=== PATIENT | female | born 1935 | race Hispanic/Latino ===

== ENCOUNTER → 2018-02-09 | Outpatient (CLI) | payer MEDICARE ==
[~2018-02-09] MED LIST: AMLO2.5T3 PO; ASPI-1181 PO; CHOL200026 PO; FENO160T16 PO; GLIM2TAB3 PO; HYDR-3965 PO; IRON150C13 PO; LISI-613 PO; METO25TA6 PO; SITA50TA PO; TOFA11TA PO; VITAMIN B 12 PO
== END | disposition home or self-care (01) ==
LOC: SHCH 10:27
PROVIDERS: ATTEND Internal Medicine Cardiovascular Disease
DX: R60.0 Localized edema (principal); E11.9 Type 2 diabetes mellitus without complications
CPT/HCPCS: 93970

== ENCOUNTER → 2018-06-04 | Outpatient (CLI) | payer MEDICARE ==
[~2018-06-04] MED LIST changes: -AMLO2.5T3 PO; +AMLO2.5T4 PO; +APIX2.5T PO; -ASPI-1181 PO; +ASPI-1197 PO; -CHOL200026 PO; +CYAN250010 PO; -FENO160T16 PO; +FENO67CA PO; +FURO20TA4 PO; +GLIM1TAB2 PO; -GLIM2TAB3 PO; -HYDR-3965 PO; -IRON150C13 PO; +IRON150C18 PO; -METO25TA6 PO; +PANT40TA25 PO; +VIT1TABL95 PO; -VITAMIN B 12 PO
== END | disposition home or self-care (01) ==
LOC: SHCH 10:51
PROVIDERS: ATTEND Internal Medicine Cardiovascular Disease
DX: I08.3 Combined rheumatic disorders of mitral, aortic and tricuspid valves (principal); I48.2 Chronic atrial fibrillation; I49.5 Sick sinus syndrome
CPT/HCPCS: 93306

== ENCOUNTER → 2019-05-17 | Outpatient (CLI) | payer MEDICARE ==
[~2019-05-17] MED LIST changes: +GLIM1TAB18 PO; -GLIM1TAB2 PO
== END | disposition home or self-care (01) ==
LOC: SHCH 14:40
PROVIDERS: ATTEND Internal Medicine Cardiovascular Disease
DX: I34.0 Nonrheumatic mitral (valve) insufficiency (principal); I48.20 Chronic atrial fibrillation, unspecified; R06.00 Dyspnea, unspecified
CPT/HCPCS: 93306

== ENCOUNTER 2020-01-04 07:14 | Day surgery (SDC) | payer MEDICARE ==
[~2020-01-04] VITALS: Ht 152.4 cm; Wt 85.3 kg
[~2020-01-04 07:14] MED LIST changes: -PANT40TA25 PO; +PANT40TA54 PO; +SODIUM CHLORIDE 0.9% 1000ML 1,000 ML IV ONE
[2020-01-04 08:00] VITALS: BP 181/80
[2020-01-04] MEDS ORDERED: LYRIC (09:03)
[2020-01-04] MEDS ORDERED: INSLAN SQ (09:04)
[2020-01-04] MEDS ORDERED: PROPOFOL 10 MG/ML 20ML VIAL IV ONE ×2 (10:41)
[2020-01-04 10:55] VITALS: BP 161/84
[2020-01-04 11:00] VITALS: BP 164/88
[2020-01-04 11:05] VITALS: BP 160/80
[2020-01-04 11:10] VITALS: BP 164/84
== END 2020-01-04 12:05 | disposition home or self-care (01) ==
LOC: ENDO 07:14 → DAH 07:14 → ENDO 12:05
PROVIDERS: ATTEND Internal Medicine
DX: R93.3 Abnormal findings on diagnostic imaging of other parts of digestive tract (principal); K31.89 Other diseases of stomach and duodenum; K80.50 Calculus of bile duct without cholangitis or cholecystitis without obstruction; K80.20 Calculus of gallbladder without cholecystitis without obstruction; K76.9 Liver disease, unspecified; D64.9 Anemia, unspecified; K59.00 Constipation, unspecified; E78.5 Hyperlipidemia, unspecified; I12.9 Hypertensive chronic kidney disease with stage 1 through stage 4 chronic kidney disease, or unspecified chronic kidney disease; E11.22 Type 2 diabetes mellitus with diabetic chronic kidney disease; N18.3 Chronic kidney disease, stage 3 (moderate); Z88.5 Allergy status to narcotic agent; Z88.8 Allergy status to other drugs, medicaments and biological substances; I48.91 Unspecified atrial fibrillation; Z95.0 Presence of cardiac pacemaker; Z90.710 Acquired absence of both cervix and uterus; Z20.828 Contact with and (suspected) exposure to other viral communicable diseases
CPT/HCPCS: 43237; 82948 ×2; 93005; A4215; A4221; A4222; A4223; A4606; A4620; A4663; C9803; J2704 ×2; J7030; U0003

== ENCOUNTER 2020-01-05 05:57 | Day surgery (SDC) | payer MEDICARE ==
[2020-01-05] VITALS (13 sets, daily range): BP systolic 142–177; BP diastolic 61–86
[~2020-01-05] VITALS: Ht 152.4 cm; Wt 85.3 kg
[~2020-01-05 05:57] MED LIST changes: -ASPI-1197 PO; -FENO67CA PO; -GLIM1TAB18 PO; +INSLAN SQ; -LISI-613 PO; -SODIUM CHLORIDE 0.9% 1000ML 1,000 ML IV ONE
[2020-01-05] MEDS ORDERED: SODIUM CHLORIDE 0.9% 1000ML 1,000 ML IV ONE (06:37)
[2020-01-05] MEDS ORDERED: ONDANSETRON HCL 4 MG/2 ML VIAL ONE (06:42)
[2020-01-05] MEDS ORDERED: MIDAZOLAM HCL 1 MG/ML 2ML VIAL ONE (06:42)
[2020-01-05] MEDS ORDERED: GLYCOPYRROLATE 1 MG/5 ML SYRINGE ONE (06:42)
[2020-01-05] MEDS ORDERED: LIDOCAINE PF 2% 5ML ABBOJECT ONE (06:42)
[2020-01-05] MEDS ORDERED: DEXAMETHASONE SOD PHOSPHATE 10MG/ML 1ML VIAL ONE ×2 (06:42→06:44)
[2020-01-05] MEDS ORDERED: SUCCINYLCHOLINE CHLORIDE 20 MG/ML 10 ML VIAL ONE (06:42)
[2020-01-05] MEDS ORDERED: FENTANYL CITRATE PF 50 MCG/1 ML 2ML VIAL ONE (06:43)
[2020-01-05] MEDS ORDERED: ROCURONIUM 10MG/1ML SYR 10 MG/ML ML ONE (06:43)
[2020-01-05] MEDS ORDERED: NEOSTIGMINE 5MG/5ML SYR IV ONE (06:43)
[2020-01-05] MEDS ORDERED: PROPOFOL 10 MG/ML 20ML VIAL IV ONE ×2 (06:43→06:45)
[2020-01-05] MEDS ORDERED: IOHEXOL-350 50ML VIAL IV ONE (07:18)
[2020-01-05] MEDS: INDOMETHACIN 50 MG SUPP.RECT RC SCH ×2 (08:20→08:30)
== END 2020-01-05 10:15 | disposition home or self-care (01) ==
LOC: DAH 05:57 → ENDO 05:57
PROVIDERS: ATTEND Internal Medicine
DX: K80.50 Calculus of bile duct without cholangitis or cholecystitis without obstruction (principal); K83.8 Other specified diseases of biliary tract; K59.00 Constipation, unspecified; K80.20 Calculus of gallbladder without cholecystitis without obstruction; K76.9 Liver disease, unspecified; I48.91 Unspecified atrial fibrillation; I12.9 Hypertensive chronic kidney disease with stage 1 through stage 4 chronic kidney disease, or unspecified chronic kidney disease; N18.2 Chronic kidney disease, stage 2 (mild); E11.22 Type 2 diabetes mellitus with diabetic chronic kidney disease; M06.9 Rheumatoid arthritis, unspecified; E66.9 Obesity, unspecified; Z95.0 Presence of cardiac pacemaker; Z90.710 Acquired absence of both cervix and uterus; Z79.4 Long term (current) use of insulin; Z79.899 Other long term (current) drug therapy
CPT/HCPCS: 43262; 43264; 74328; 82948; C1769; C1773; J0330; J1100 ×2; J2001; J2250; J2405; J2704 ×2; J2710; J3010; J3490; J7030; Q9967; 74330

== ENCOUNTER → 2020-02-25 | Outpatient (CLI) | payer MEDICARE ==
[~2020-02-25] MED LIST changes: -APIX2.5T PO
== END | disposition home or self-care (01) ==
LOC: SHCH 08:25
PROVIDERS: ATTEND Internal Medicine Cardiovascular Disease
DX: I48.0 Paroxysmal atrial fibrillation (principal); I50.32 Chronic diastolic (congestive) heart failure
CPT/HCPCS: 93306; 93356

== ENCOUNTER 2020-06-28 15:15 | Emergency (ER) | payer MEDICARE ==
[2020-06-28 16:18] LABS: BASOPHILS % (AUTO) 0.4 % (0.0-5.0); EOSINOPHILS % (AUTO) 2.4 % (0.0-8.0); HEMATOCRIT 32.9 % (36-48); LYMPHOCYTES % (AUTO) 6.7 % (21.0-51.0); MEAN CORPUSCULAR HEMOGLOBIN 24.4 pg (27.0-33.0); MEAN CORPUSCULAR HGB CONC 30.4 g/dL (32.0-36.0); MEAN CORPUSCULAR VOLUME 80.2 fL (79-99); MONOCYTES % (AUTO) 8.9 % (3.0-13.0); NEUTROPHILS % (AUTO) 81.2 % (40.0-77.0); PLATELET COUNT (AUTO) 203 K/uL (130-400); RED CELL DISTRIBUTION WIDTH 18.9 % (11.0-15.5); WHITE BLOOD COUNT (AUTO) 7.8 K/uL (4.8-10.8)
[2020-06-28 16:28] LABS: CREATININE 2.9 mg/dL (0.5-1.5); POTASSIUM 4.1 mmol/L (3.5-5.1)
[2020-06-28 16:31] LABS: INR 1.23 (0.85-1.15); PROTHROMBIN TIME 13.2 SEC (9.6-11.6)
[2020-06-28 16:32] LABS: PARTIAL THROMBOPLASTIN TIME 27.8 SEC (26.3-35.5)
[2020-06-28 16:35] LABS: ALBUMIN 2.6 g/dL (3.5-5.0); BILIRUBIN,TOTAL 0.4 mg/dL (0.2-1.0); TOTAL PROTEIN, SERUM 6.8 g/dL (6.0-8.3)
[2020-06-28 17:07] LABS: APPEARANCE,URINE Cloudy (CLEAR); BILIRUBIN,URINE Negative (NEGATIVE); COLOR,URINE Dark Yellow (YELLOW); GLUCOSE, URINE (UA) Negative (NEGATIVE); KETONES,URINE Negative (NEGATIVE); LEUKOCYTE ESTERASE ,URINE Large (NEGATIVE); NITRATE,URINE Negative (NEGATIVE); OCCULT BLOOD,URINE Trace (NEGATIVE); PROTEIN,URINE Negative (NEGATIVE); UROBILINOGEN,URINE 0.2 mg/dL (0.2-1.0)
[2020-06-28 17:14] LABS: BACTERIA,URINE Few /HPF (None Seen); SQUAMOUS EPITHELIAL CELL,UR Moderate /HPF (0-2)
[2020-06-28 17:15] LABS: MUCUS,URINE Rare LPF (None Seen); TRANSITIONAL EPI CELLS,URINE Rare /HPF (None Seen)
[2020-06-29 01:04] LABS: APPEARANCE,URINE Clear (CLEAR); BILIRUBIN,URINE Negative (NEGATIVE); COLOR,URINE Yellow (YELLOW); GLUCOSE, URINE (UA) Negative (NEGATIVE); KETONES,URINE Negative (NEGATIVE); LEUKOCYTE ESTERASE ,URINE Moderate (NEGATIVE); NITRATE,URINE Negative (NEGATIVE); OCCULT BLOOD,URINE Negative (NEGATIVE); PH,URINE 6.5 (5.0-8.0); PROTEIN,URINE Negative (NEGATIVE); UROBILINOGEN,URINE 0.2 mg/dL (0.2-1.0)
[2020-06-29] MEDS ORDERED: 0.9%NACL 1000ML 1,000 ML IV ONE (01:09)
[2020-06-29] MEDS ORDERED: CEFTRIAXONE 1G VIAL ONE (01:18)
[2020-06-29 01:23] LABS: BACTERIA,URINE Few /HPF (None Seen); RBC,URINE 0-1 /HPF (0-1)
== END 2020-06-29 07:29 | disposition home or self-care (01) ==
LOC: EDH 15:15
DX: N39.0 Urinary tract infection, site not specified (principal); M62.81 Muscle weakness (generalized)
CPT/HCPCS: 36415 ×2; 71045; 80053; 81001; 83880; 84484 ×2; 85025; 85610; 85730; 87088; 93005; 96365; 96366; 99285; J0696; J7030

== ENCOUNTER 2020-08-23 20:24 | Inpatient (IN) | payer MEDICARE ==
[~2020-08-23] VITALS: Ht 152.4 cm; Wt 69.8 kg
[2020-08-23 20:53] LABS: BASOPHILS % (AUTO) 0.3 % (0.0-5.0); LYMPHOCYTES % (AUTO) 4.2 % (21.0-51.0); MEAN CORPUSCULAR HEMOGLOBIN 26.2 pg (27.0-33.0); MEAN CORPUSCULAR HGB CONC 32.1 g/dL (32.0-36.0); MEAN CORPUSCULAR VOLUME 81.7 fL (79-99); NEUTROPHILS % (AUTO) 85.1 % (40.0-77.0); PLATELET COUNT (AUTO) 241 K/uL (130-400); RED BLOOD CELL COUNT(AUTO) 4.65 MIL/uL (4.00-5.50); RED CELL DISTRIBUTION WIDTH 16.8 % (11.0-15.5)
[2020-08-23 21:18] LABS: INR 1.29 (0.85-1.15); PROTHROMBIN TIME 13.7 SEC (9.6-11.6)
[2020-08-23 21:20] LABS: PARTIAL THROMBOPLASTIN TIME 28.1 SEC (26.3-35.5)
[2020-08-23 21:21] LABS: B-TYPE NATRIURETIC PEPTIDE 163 pg/mL (0-100)
[2020-08-23 21:23] LABS: CREATININE 1.9 mg/dL (0.5-1.5); POTASSIUM 3.2 mmol/L (3.5-5.1)
[2020-08-23 21:28] LABS: ALBUMIN 2.9 g/dL (3.5-5.0); BILIRUBIN,TOTAL 0.6 mg/dL (0.2-1.0); TOTAL PROTEIN, SERUM 6.9 g/dL (6.0-8.3)
[2020-08-23] MEDS ORDERED: KCL 20 MEQ ERTAB PO ONE (22:14)
[2020-08-23] MEDS ORDERED: ONDANSETRON 4MG INJ ONE (22:14)
[2020-08-23 22:22] LABS: APPEARANCE,URINE Clear (CLEAR); BILIRUBIN,URINE Negative (NEGATIVE); GLUCOSE, URINE (UA) Negative (NEGATIVE); KETONES,URINE Trace mg/dL (NEGATIVE); LEUKOCYTE ESTERASE ,URINE Negative (NEGATIVE); NITRATE,URINE Negative (NEGATIVE); OCCULT BLOOD,URINE Negative (NEGATIVE); PROTEIN,URINE Negative (NEGATIVE)
[2020-08-23 22:24] LABS: COLOR,URINE YELLOW (YELLOW)
[2020-08-23] MEDS ORDERED: ZOSYN 3.375GM+NS 50ML 50 ML IV ONE (22:48)
[2020-08-24] MEDS: CEFTRIAXONE 1G VIAL IVP SCH (01:00)
[2020-08-24] MEDS ORDERED: CEFTRIAXONE 1G VIAL ONE (01:07)
[2020-08-24] MEDS ORDERED: MORPHINE 2 MG SYG ONE (01:07)
[2020-08-24] MEDS ORDERED: DEXTROSE 5 % AND 0.9 % NACL 1,000 ML IV ONE (01:08)
[2020-08-24] MEDS ORDERED: ACETAMINOPHEN 650 MG SUPPOSITORY RC PRN (01:15)
[2020-08-24] MEDS ORDERED: DEXTROSE 50%-WATER 50 ML DISP.SYRIN IV PRN (01:15)
[2020-08-24] MEDS ORDERED: ONDANSETRON 4MG INJ IVP PRN (01:15)
[2020-08-24] MEDS ORDERED: GLUCAGON 1MG KIT 1 MG ML IM PRN (01:15)
[2020-08-24] MEDS ORDERED: MORPHINE 2 MG SYG IVP PRN (01:15)
[2020-08-24] MEDS: DEXTROSE 5 % AND 0.9 % NACL 1,000 ML IV SCH (01:15)
[2020-08-24] MEDS ORDERED: ONDANSETRON 4MG INJ ONE (01:27)
[2020-08-24 02:30] VITALS: BP 155/59
[2020-08-24 04:41] LABS: HEMATOCRIT 32.9 % (36-48); MEAN CORPUSCULAR HGB CONC 31.6 g/dL (32.0-36.0); MEAN CORPUSCULAR VOLUME 82.3 fL (79-99); PLATELET COUNT (AUTO) 203 K/uL (130-400); RED CELL DISTRIBUTION WIDTH 16.5 % (11.0-15.5)
[2020-08-24 05:04] LABS: CREATININE 1.7 mg/dL (0.5-1.5); MAGNESIUM 1.3 mg/dL (1.80-2.40); POTASSIUM 3.5 mmol/L (3.5-5.1)
[2020-08-24] MEDS: INSULIN R NPO SSI SQ SCH ×3 (05:06→18:00)
[2020-08-24 05:26] LABS: BASOPHILS % (MANUAL) 1 % (0-2); EOSINOPHILS % (MANUAL) 2 % (1-6); LYMPHOCYTES % (MANUAL) 3 % (22-44); MAN.DIFF COMMENT-IMPRESSION MANUAL DIFFERENTIAL; MONOCYTES % (MANUAL) 8 % (2-9); SEGMENTED NEUTROPHILS % 86 % (40-70)
[2020-08-24 05:27] LABS: PLATELET MORPHOLOGY COMMENT ADEQUATE
[2020-08-24 07:30] VITALS: BP 119/52
[2020-08-24] MEDS ORDERED: REPA2TAB8 PO (10:53)
[2020-08-24] MEDS ORDERED: HYDR100T27 PO (10:53)
[2020-08-24] MEDS ORDERED: FENO54TA6 PO (10:53)
[2020-08-24] MEDS ORDERED: HERB1TAB PO (10:53)
[2020-08-24] MEDS ORDERED: ACET1TAB25 PO (10:53)
[2020-08-24] MEDS ORDERED: APIX2.5T PO (10:53)
[2020-08-24] MEDS ORDERED: DOXA4TAB3 PO (10:53)
[2020-08-24] MEDS ORDERED: PREG25CA18 PO (10:53)
[2020-08-24] MEDS ORDERED: LEFL10TA19 PO (10:53)
[2020-08-24] MEDS ORDERED: VIT D3 PO (10:53)
[2020-08-24] MEDS ORDERED: [UNRECOGNIZED DRUG - OTHER] PO (11:16)
[2020-08-24] MEDS ORDERED: VITA-328 PO (11:25)
[2020-08-24 11:29] VITALS: BP 146/58
[2020-08-24] MEDS: REPAGLINIDE 2 MG PO SCH ×2 (14:00→21:00)
[2020-08-24 17:01] VITALS: BP 132/52
[2020-08-24 20:00] VITALS: BP 141/57
[2020-08-24] MEDS: FENOFIBRATE 54 MG PO SCH (21:00)
[2020-08-24] MEDS: HYDRALAZINE 25MG TABLET PO SCH (21:39)
[2020-08-24] MEDS: APIXABAN 2.5 MG TABLET PO SCH (21:40)
[2020-08-24 23:19] VITALS: BP 142/54
[2020-08-25] MEDS: CEFTRIAXONE 1G VIAL IVP SCH (02:01)
[2020-08-25] MEDS: DEXTROSE 5 % AND 0.9 % NACL 1,000 ML IV SCH ×2 (02:01→17:15)
[2020-08-25 03:50] VITALS: BP 143/52
[2020-08-25 08:39] VITALS: BP 160/64
[2020-08-25] MEDS: REPAGLINIDE 2 MG PO SCH ×3 (09:00→20:43)
[2020-08-25] MEDS: **HM**(Leflunomide 10 MG PO SCH (09:00)
[2020-08-25] MEDS: APIXABAN 2.5 MG TABLET PO SCH ×2 (09:11→19:48)
[2020-08-25] MEDS: FUROSEMIDE 20 MG TABLET PO SCH (09:11)
[2020-08-25] MEDS: PREGABALIN 25 MG CAP PO SCH (09:11)
[2020-08-25] MEDS: HYDRALAZINE 25MG TABLET PO SCH ×2 (09:12→19:47)
[2020-08-25] MEDS: LINAGLIPTIN 5 MG TABLET PO SCH (09:12)
[2020-08-25] MEDS: DOXAZOSIN MESYLATE 2 MG TABLET PO SCH (09:12)
[2020-08-25] MEDS: PANTOPRAZOLE 40 MG TAB DR PO SCH (09:12)
[2020-08-25] MEDS: AMLODIPINE 2.5 MG TAB PO SCH (09:12)
[2020-08-25] MEDS: INSULIN R NPO SSI SQ SCH ×3 (12:00→18:00)
[2020-08-25 12:10] VITALS: BP 139/55
[2020-08-25 15:08] LABS: BASOPHILS % (AUTO) 0.6 % (0.0-5.0); EOSINOPHILS % (AUTO) 0.9 % (0.0-8.0); HEMATOCRIT 33.6 % (36-48); LYMPHOCYTES % (AUTO) 4.5 % (21.0-51.0); MEAN CORPUSCULAR HEMOGLOBIN 27.1 pg (27.0-33.0); MEAN CORPUSCULAR HGB CONC 32.4 g/dL (32.0-36.0); MEAN CORPUSCULAR VOLUME 83.6 fL (79-99); MONOCYTES % (AUTO) 8.8 % (3.0-13.0); NEUTROPHILS % (AUTO) 84.9 % (40.0-77.0); PLATELET COUNT (AUTO) 191 K/uL (130-400); RED BLOOD CELL COUNT(AUTO) 4.02 MIL/uL (4.00-5.50); RED CELL DISTRIBUTION WIDTH 16.8 % (11.0-15.5); WHITE BLOOD COUNT (AUTO) 6.9 K/uL (4.8-10.8)
[2020-08-25 15:22] LABS: INR 1.27 (0.85-1.15); PROTHROMBIN TIME 13.5 SEC (9.6-11.6)
[2020-08-25 15:31] LABS: ALBUMIN 2.7 g/dL (3.5-5.0); BILIRUBIN,TOTAL 0.5 mg/dL (0.2-1.0); CREATININE 1.4 mg/dL (0.5-1.5); TOTAL PROTEIN, SERUM 6.1 g/dL (6.0-8.3)
[2020-08-25] MEDS ORDERED: POTASSIUM CHLORIDE 10% ELIXIR 20 MEQ/15 ML UDCUP PO PRN (16:00)
[2020-08-25] MEDS ORDERED: LIDOCAINE HCL-MPF 1% 2ML VIAL IV PRN (16:00)
[2020-08-25] MEDS ORDERED: POTASSIUM CHLORIDE 20MEQ/100ML 100 ML IV PRN (16:00)
[2020-08-25 17:24] VITALS: BP 152/59
[2020-08-25 20:00] VITALS: BP 155/65
[2020-08-25] MEDS: FENOFIBRATE 54 MG PO SCH (20:43)
[2020-08-25] MEDS: KCL 20 MEQ ERTAB PO PRN ×2 (20:44→22:20)
[2020-08-26] VITALS: BP 143/51
[2020-08-26] MEDS: CEFTRIAXONE 1G VIAL IVP SCH (00:14)
[2020-08-26] MEDS: KCL 20 MEQ ERTAB PO PRN ×2 (00:14→02:33)
[2020-08-26 04:00] VITALS: BP 139/57
[2020-08-26 05:24] LABS: HEMATOCRIT 32.4 % (36-48); MEAN CORPUSCULAR HEMOGLOBIN 26.2 pg (27.0-33.0); MEAN CORPUSCULAR HGB CONC 30.9 g/dL (32.0-36.0); MEAN CORPUSCULAR VOLUME 84.8 fL (79-99); RED BLOOD CELL COUNT(AUTO) 3.82 MIL/uL (4.00-5.50); RED CELL DISTRIBUTION WIDTH 16.7 % (11.0-15.5); WHITE BLOOD COUNT (AUTO) 6.6 K/uL (4.8-10.8)
[2020-08-26 05:49] LABS: CREATININE 1.2 mg/dL (0.5-1.5); MAGNESIUM 1.2 mg/dL (1.80-2.40); POTASSIUM 4.3 mmol/L (3.5-5.1)
[2020-08-26] MEDS: INSULIN R NPO SSI SQ SCH ×4 (05:51→18:00)
[2020-08-26] MEDS: **HM**(Leflunomide 10 MG PO SCH (09:00)
[2020-08-26 09:16] VITALS: BP 167/56
[2020-08-26] MEDS: DOXAZOSIN MESYLATE 2 MG TABLET PO SCH (10:43)
[2020-08-26] MEDS: LINAGLIPTIN 5 MG TABLET PO SCH (10:43)
[2020-08-26] MEDS: APIXABAN 2.5 MG TABLET PO SCH ×2 (10:44→20:03)
[2020-08-26] MEDS: PREGABALIN 25 MG CAP PO SCH (10:44)
[2020-08-26] MEDS: AMLODIPINE 2.5 MG TAB PO SCH (10:44)
[2020-08-26] MEDS: PANTOPRAZOLE 40 MG TAB DR PO SCH (10:44)
[2020-08-26] MEDS: HYDRALAZINE 25MG TABLET PO SCH ×2 (10:44→20:04)
[2020-08-26] MEDS: FUROSEMIDE 20 MG TABLET PO SCH (10:44)
[2020-08-26] MEDS: REPAGLINIDE 2 MG PO SCH ×3 (11:10→20:04)
[2020-08-26 11:48] VITALS: BP 174/59
[2020-08-26] MEDS ORDERED: MAGNESIUM 4GM PREMIX 100ML 100 ML IV SCH (12:45)
[2020-08-26 16:00] VITALS: BP 149/52
[2020-08-26] MEDS: LOPERAMIDE 1 MG/7.5 ML UDCUP PO PRN (17:13)
[2020-08-26] MEDS: HYDROCORTISONE 25 MG SUPPOSITORY PR PRN (17:13)
[2020-08-26 20:00] VITALS: BP 137/46
[2020-08-26] MEDS: FENOFIBRATE 54 MG PO SCH (20:05)
[2020-08-26] MEDS: DEXTROSE 5 % AND 0.9 % NACL 1,000 ML IV SCH (20:09)
[2020-08-27] VITALS: BP 117/46
[2020-08-27] MEDS: CEFTRIAXONE 1G VIAL IVP SCH (00:33)
[2020-08-27 04:00] VITALS: BP 119/50
[2020-08-27] MEDS: INSULIN R NPO SSI SQ SCH ×5 (06:00→21:30)
[2020-08-27 06:08] LABS: CREATININE 1.4 mg/dL (0.5-1.5); MAGNESIUM 2.4 mg/dL (1.80-2.40); POTASSIUM 3.4 mmol/L (3.5-5.1)
[2020-08-27 08:52] LABS: MEAN CORPUSCULAR HEMOGLOBIN 25.8 pg (27.0-33.0); MEAN CORPUSCULAR HGB CONC 30.7 g/dL (32.0-36.0); RED BLOOD CELL COUNT(AUTO) 3.57 MIL/uL (4.00-5.50); RED CELL DISTRIBUTION WIDTH 16.6 % (11.0-15.5); WHITE BLOOD COUNT (AUTO) 6.8 K/uL (4.8-10.8)
[2020-08-27] MEDS: **HM**(Leflunomide 10 MG PO SCH (09:00)
[2020-08-27] MEDS: REPAGLINIDE 2 MG PO SCH ×3 (09:00→21:00)
[2020-08-27 09:15] VITALS: BP 130/58
[2020-08-27] MEDS: DEXTROSE 5 % AND 0.9 % NACL 1,000 ML IV SCH (09:15)
[2020-08-27] MEDS: FUROSEMIDE 20 MG TABLET PO SCH (10:22)
[2020-08-27] MEDS: PREGABALIN 25 MG CAP PO SCH (10:22)
[2020-08-27] MEDS: HYDRALAZINE 25MG TABLET PO SCH ×2 (10:22→21:00)
[2020-08-27] MEDS: AMLODIPINE 2.5 MG TAB PO SCH (10:22)
[2020-08-27] MEDS: LINAGLIPTIN 5 MG TABLET PO SCH (10:22)
[2020-08-27] MEDS: PANTOPRAZOLE 40 MG TAB DR PO SCH (10:22)
[2020-08-27] MEDS: DOXAZOSIN MESYLATE 2 MG TABLET PO SCH (10:22)
[2020-08-27] MEDS: LOPERAMIDE 1 MG/7.5 ML UDCUP PO PRN (10:23)
[2020-08-27] MEDS: APIXABAN 2.5 MG TABLET PO SCH ×2 (10:23→21:31)
[2020-08-27] MEDS: KCL 20 MEQ ERTAB PO PRN ×2 (10:24→22:24)
[2020-08-27 12:52] VITALS: BP 126/50
[2020-08-27 17:27] VITALS: BP 125/49
[2020-08-27 20:00] VITALS: BP 109/70
[2020-08-27] MEDS ORDERED: HYDROCORTISONE 25 MG SUPPOSITORY PR SCH (20:30)
[2020-08-27] MEDS: FENOFIBRATE 54 MG PO SCH (21:00)
[2020-08-28] VITALS: BP 120/42
[2020-08-28] MEDS: CEFTRIAXONE 1G VIAL IVP SCH (01:16)
[2020-08-28] MEDS: DEXTROSE 5 % AND 0.9 % NACL 1,000 ML IV SCH (03:14)
[2020-08-28 04:00] VITALS: BP 160/43
[2020-08-28] MEDS ORDERED: ACETAMINOPHEN 325 MG TAB PO PRN (05:45)
[2020-08-28] MEDS: INSULIN R NPO SSI SQ SCH ×3 (06:00→16:44)
[2020-08-28 07:30] VITALS: BP 144/72
[2020-08-28] MEDS: **HM**(Leflunomide 10 MG PO SCH (09:00)
[2020-08-28] MEDS: REPAGLINIDE 2 MG PO SCH ×3 (09:00→20:37)
[2020-08-28 11:00] VITALS: BP 123/61
[2020-08-28] MEDS: DOXAZOSIN MESYLATE 2 MG TABLET PO SCH (11:23)
[2020-08-28] MEDS: HYDRALAZINE 25MG TABLET PO SCH ×2 (11:24→20:36)
[2020-08-28] MEDS: LINAGLIPTIN 5 MG TABLET PO SCH (11:25)
[2020-08-28] MEDS: PANTOPRAZOLE 40 MG TAB DR PO SCH (11:25)
[2020-08-28] MEDS: FUROSEMIDE 20 MG TABLET PO SCH (11:25)
[2020-08-28] MEDS: APIXABAN 2.5 MG TABLET PO SCH ×2 (11:25→20:37)
[2020-08-28] MEDS: PREGABALIN 25 MG CAP PO SCH (11:26)
[2020-08-28] MEDS: AMLODIPINE 2.5 MG TAB PO SCH (11:26)
[2020-08-28] MEDS: LOPERAMIDE 1 MG/7.5 ML UDCUP PO PRN (12:34)
[2020-08-28 16:00] VITALS: BP 125/44
[2020-08-28] MEDS: HYDROCORTISONE 25 MG SUPPOSITORY PR PRN (16:33)
[2020-08-28] MEDS: KCL 20 MEQ ERTAB PO PRN (16:42)
[2020-08-28] MEDS ORDERED: LOPERAMIDE HCL 2 MG CAP PO SCH (17:15)
[2020-08-28 20:00] VITALS: BP 129/57
[2020-08-28] MEDS: INSULIN HUMULIN R 100 UNIT/ML 3ML SQ SCH (20:37)
[2020-08-28] MEDS: FENOFIBRATE 54 MG PO SCH (20:37)
[2020-08-29] VITALS: BP 125/50
[2020-08-29] MEDS: CEFTRIAXONE 1G VIAL IVP SCH (00:20)
[2020-08-29 04:00] VITALS: BP 128/54
[2020-08-29 04:57] LABS: HEMATOCRIT 29.3 % (36-48); MEAN CORPUSCULAR HEMOGLOBIN 26.7 pg (27.0-33.0); MEAN CORPUSCULAR HGB CONC 31.7 g/dL (32.0-36.0); MEAN CORPUSCULAR VOLUME 84.2 fL (79-99); PLATELET COUNT (AUTO) 153 K/uL (130-400); RED BLOOD CELL COUNT(AUTO) 3.48 MIL/uL (4.00-5.50); RED CELL DISTRIBUTION WIDTH 16.6 % (11.0-15.5); WHITE BLOOD COUNT (AUTO) 6.1 K/uL (4.8-10.8)
[2020-08-29 05:09] LABS: CREATININE 1.5 mg/dL (0.5-1.5)
[2020-08-29 05:34] LABS: BAND NEUTROPHILS % (MANUAL) 1 % (0-2); EOSINOPHILS % (MANUAL) 4 % (1-6); LYMPHOCYTES % (MANUAL) 5 % (22-44); MAN.DIFF COMMENT-IMPRESSION MANUAL DIFFERENTIAL; MONOCYTES % (MANUAL) 11 % (2-9); PLATELET MORPHOLOGY COMMENT ADEQUATE; REACTIVE LYMPHOCYTES 2 % (0-0); SEGMENTED NEUTROPHILS % 77 % (40-70)
[2020-08-29] MEDS: INSULIN HUMULIN R 100 UNIT/ML 3ML SQ SCH ×2 (05:52→11:30)
[2020-08-29 08:00] VITALS: BP 134/51
[2020-08-29] MEDS: HYDRALAZINE 25MG TABLET PO SCH (09:46)
[2020-08-29] MEDS: LINAGLIPTIN 5 MG TABLET PO SCH (09:46)
[2020-08-29] MEDS: APIXABAN 2.5 MG TABLET PO SCH (09:47)
[2020-08-29] MEDS: PANTOPRAZOLE 40 MG TAB DR PO SCH (09:47)
[2020-08-29] MEDS: FUROSEMIDE 20 MG TABLET PO SCH (09:47)
[2020-08-29] MEDS: PREGABALIN 25 MG CAP PO SCH (09:47)
[2020-08-29] MEDS: AMLODIPINE 2.5 MG TAB PO SCH (09:47)
[2020-08-29] MEDS: DOXAZOSIN MESYLATE 2 MG TABLET PO SCH (09:48)
[2020-08-29 11:35] VITALS: BP 125/49
== END 2020-08-29 14:20 | disposition home or self-care (01) | DRG 445 ==
LOC: EDH 20:24 → EDHIP 23:36 → 3CH 08-24 02:04
PROVIDERS: ADMIT Internal Medicine Infectious Disease; ATTEND Internal Medicine Infectious Disease
DX: K80.63 Calculus of gallbladder and bile duct with acute cholecystitis with obstruction (principal); N17.9 Acute kidney failure, unspecified; E87.6 Hypokalemia; I12.9 Hypertensive chronic kidney disease with stage 1 through stage 4 chronic kidney disease, or unspecified chronic kidney disease; E11.22 Type 2 diabetes mellitus with diabetic chronic kidney disease; E11.649 Type 2 diabetes mellitus with hypoglycemia without coma; E66.9 Obesity, unspecified; I48.91 Unspecified atrial fibrillation; E86.0 Dehydration; E78.5 Hyperlipidemia, unspecified; M06.9 Rheumatoid arthritis, unspecified; D64.9 Anemia, unspecified; N18.30 Chronic kidney disease, stage 3 unspecified; E83.42 Hypomagnesemia; M10.9 Gout, unspecified; Z96.652 Presence of left artificial knee joint; R53.81 Other malaise; D17.71 Benign lipomatous neoplasm of kidney; R74.8 Abnormal levels of other serum enzymes; E04.9 Nontoxic goiter, unspecified; Z20.822 Contact with and (suspected) exposure to COVID-19; Z68.30 Body mass index [BMI] 30.0-30.9, adult; Z95.0 Presence of cardiac pacemaker; Z90.710 Acquired absence of both cervix and uterus; Z88.5 Allergy status to narcotic agent; Z88.8 Allergy status to other drugs, medicaments and biological substances; Z83.3 Family history of diabetes mellitus
CPT/HCPCS: 36415; 71045; 74176; 76700; 78227; 80048; 80053; 81003; 82550; 82948; 83605; 83690; 83735; 83880; 84145; 84484; 85025; 85027; 85610; 85730; 87040; 87426; 93005; A9537; G0378; J0696; J2405; J2543; J3475; J3480; J3490; J7042; U0003